=== PATIENT | female | born 1985 | race Caucasian/White ===

== ENCOUNTER 2017-05-04 23:22 | Emergency (ER) | payer BC, OTHER ==
[~2017-05-04] VITALS: Ht 170.2 cm; Wt 65.0 kg
[~2017-05-04 23:22] MED LIST: ALBU6.7H INH; PREN0.01 PO
[2017-05-04 23:25] VITALS: BP 113/84; PULSE 96; RESP 18; TEMP 99.5; O2SAT 98
[2017-05-04] MEDS ORDERED: ZOFR4TAB3 SL (23:41)
[2017-05-04] MEDS ORDERED: ALBU6.7H INH (23:41)
[2017-05-04] MEDS ORDERED: HYDR-3580 PO (23:41)
[2017-05-04] MEDS ORDERED: DIAZ5TAB PO (23:41)
[2017-05-04] MEDS ORDERED: CRANPOW2 (23:41)
[2017-05-04] MEDS ORDERED: multivitamin (23:41)
[2017-05-04 23:48] VITALS: BP 115/73; PULSE 93; O2SAT 99
[2017-05-05] MEDS ORDERED: SODIUM CHLOR 0.9% 1000 ML INJ 1,000 ML IV ONE ×2 (00:15)
--- NOTE | 2017-05-05 00:21 | PD ---
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 Yesterday she felt a little bit feverish but it went away this morning. Today it came and stayed so she came to the emergency department. She is also concerned because she has been constipated. She has not been having consistent bowel movement since her surgery. She used an enema and took prune juice and the third of magnesium citrate bottle and had 2 small stools. She doesn't feel bloated. She's been vomiting several times a day ever since the surgery due to vertigo which she's been told is normal. She denies any pain or redness around the site of her surgery. She has had some dysuria and some urinary urgency 3 days ago but she took some cranberry pills and that went away. She denies any cough, rhinorrhea or sore throat. PFSH Past Medical History Asthma: Yes (seasonal allery ) Tetanus Vaccination: > 5 Years Influenza Vaccination: Yes ?: Not : 2 Para: 2 Dilation and Curettage (D&C): Yes (4 years) Past Surgical History Other Surgery: Yes (brain sx 04/20/17 rem of acoustic neuroma) Social History Alcohol Use: No Tobacco Use: No Substance Use: No Allergies-Medications (Allergen,Severity, Reaction): Coded Allergies: Lactose (Verified Allergy, Severe, CRAMPING, DIARREHIA, 07/06/12) Reported Meds & Prescriptions Reported Meds & Active Scripts Active Reported Cranberry (Cranberry (Vaccinium Macrocarpon)) 1 Powd [multivitamin] Diazepam 5 Mg Tab 5 Mg PO QID PRN Hydrocodone-Acetaminophen 7.5-325 mg Tab 1 Tab PO Q6H PRN Zofran Odt (Ondansetron Odt) 4 Mg Tab 4 Mg SL Q8HR PRN Proventil Hfa 6.7 GM Inh (Albuterol Sulfate) 90 Mcg/Act Aer 2 Puff INH Q6H PRN Review of Systems Except as stated in HPI: all other systems reviewed are Neg Physical Exam Narrative GENERAL:Well appearing, no acute distress SKIN: Well healing incision behind the right ear with no erythema, fluctuance or drainage. HEAD: Atraumatic. Normocephalic. EYES: Pupils equal and round. No injection or drainage. ENT: Dry mucous membranes. NECK: Trachea midline. CARDIOVASCULAR: Regular rate and rhythm. No murmur appreciated. RESPIRATORY: Clear to auscultation. Breath sounds equal bilaterally. GASTROINTESTINAL: Abdomen soft, non-tender, nondistended. MUSCULOSKELETAL: No obvious deformities. NEUROLOGICAL: Awake and alert. No obvious cranial nerve deficits. Moving all extremities PSYCHIATRIC: Appropriate mood and affect; insight and judgment normal. Data Data Last Documented VS Vital Signs Date Time Temp Pulse Resp B/P Pulse Ox O2 Delivery O2 Flow Rate FiO2 05/04/17 23:49 99 Room Air 05/04/17 23:48 93 115/73 05/04/17 23:25 99.5 18 Orders Complete Blood Count With Diff (05/05/17 00:02) Comprehensive Metabolic Panel (05/05/17 00:02) ^ Insert Iv (05/05/17 00:02) Urinalysis - C+S If Indicated (05/05/17 00:02) Sodium Chlor 0.9% 1000 Ml Inj (Ns 1000 M (05/05/17 00:15) Ed Urine Pregnancytest Poc (05/05/17 00:02) Sodium Chlor 0.9% 1000 Ml Inj (Ns 1000 M (05/05/17 00:15) Chest, Single Ap (05/05/17 ) Labs Laboratory Tests Test 05/05/17 00:08 White Blood Count 15.4 TH/MM3 Red Blood Count 5.09 MIL/MM3 Hemoglobin 14.7 GM/DL Hematocrit 44.3 % Mean Corpuscular Volume 86.9 FL Mean Corpuscular Hemoglobin 28.9 PG Mean Corpuscular Hemoglobin 33.3 % Concent Red Cell Distribution Width 13.3 % Platelet Count 173 TH/MM3 Mean Platelet Volume 9.4 FL Neutrophils (%) (Auto) 71.0 % Lymphocytes (%) (Auto) 22.9 % Monocytes (%) (Auto) 5.1 % Eosinophils (%) (Auto) 0.8 % Basophils (%) (Auto) 0.2 % Neutrophils # (Auto) 10.9 TH/MM3 Lymphocytes # (Auto) 3.5 TH/MM3 Monocytes # (Auto) 0.8 TH/MM3 Eosinophils # (Auto) 0.1 TH/MM3 Basophils # (Auto) 0.0 TH/MM3 CBC Comment DIFF FINAL Differential Comment Urine Color LIGHT-YELLOW Urine Turbidity CLEAR Urine pH 6.5 Urine Specific [place] 1.005 Urine Protein NEG mg/dL Urine Glucose (UA) NEG mg/dL Urine Ketones NEG mg/dL Urine Occult Blood NEG Urine Nitrite NEG Urine Bilirubin NEG Urine Urobilinogen LESS THAN 2.0 MG/DL Urine Leukocyte Esterase NEG Urine WBC 1 /hpf Urine Squamous Epithelial 1 /hpf Cells Microscopic Urinalysis Comment CULT NOT INDICATED Sodium Level 137 MEQ/L Potassium Level 4.2 MEQ/L Chloride Level 98 MEQ/L Carbon Dioxide Level 33.6 MEQ/L Anion Gap 5 MEQ/L Blood Urea Nitrogen 9 MG/DL Creatinine 0.63 MG/DL Estimat Glomerular Filtration 110 ML/MIN Rate Random Glucose 119 MG/DL Calcium Level 8.7 MG/DL Total Bilirubin 0.4 MG/DL Aspartate Amino Transf 17 U/L (AST/SGOT) Alanine Aminotransferase 40 U/L (ALT/SGPT) Alkaline Phosphatase 65 U/L Total Protein 7.3 GM/DL Albumin 3.5 GM/DL [facility] Medical Decision Making Medical Screen Exam Complete: Yes Emergency Medical Condition: Yes Interpretation(s) temperature is 99.5, mild tachycardia, normotensive leukocytosis of 15 electrolytes are reassuring urinalysis: no infection cxr: no acute process Differential Diagnosis Urinary tract infection, pneumonia, viral syndrome, meningitis Narrative Course This is a 31-year-old female who presents to the emergency department with a fever of 101.4 earlier today. She has no localizing symptoms. She was concerned about her constipation and thought she might have a blockage in her abdomen. She appears dehydrated on exam. Labs are obtained which demonstrated a mild leukocytosis. She says she has had some neck pain but this is ever since the procedure and she has not developed any worsening headache, neck pain or photophobia in the past several days. I spoke to her neurosurgeon who said the only concern would be that the patient may have meningitis. At this point she doesn't appear to have bacterial meningitis. I discussed the possibilities with the patient of doing a lumbar puncture here in the emergency department or transferring her over to the [facility] ER. Her neurosurgeon Dr. Zuluaga offered to evaluate her in clinic in the morning. She would prefer to do this and she feels a lot better after IV hydration. She understood my concern for meningitis and she feels like this possibilities fairly unlikely based on her symptoms. I gave her strict instructions that if she had all feels worse over night she should return to the emergency department and she should probably follow up with her neurosurgeon in the morning. Diagnosis Primary Impression: Fever Qualified Code: R50.9 - Fever, unspecified fever cause Patient Instructions: General Instructions Additional Instructions: If you develop severe headache, neck pain, light sensitivity, confusion, or feel worse return to the emergency department immediately. Follow up with Dr. Zuluaga in the office first thing in the morning. Med/Other Pt SpecificInfo: No Change to Meds Disposition: 01 DISCHARGE HOME Condition: Stable Aicha Lazcano MD May 05, 2017 00:21
[2017-05-05 00:22] LABS: BLOOD, URINE NEG (NEG); GLUCOSE,URINE NEG (NEG); KETONE, URINE NEG (NEG); NITRITE,URINE NEG (NEG); PH, URINE 6.5 (5.0-8.5); SQUAMOUS EPITHELIAL CELL URINE 1 /hpf (0-5); URINE COLOR LIGHT-YELLOW (YELLW/STRAW)
[2017-05-05 00:26] LABS: AUTOMATED NEUTROPHIL # 10.9 TH/MM3 (1.8-7.7); BASOPHIL % 0.2 % (0.0-2.0); EOSINOPHIL # 0.1 TH/MM3 (0-0.4); EOSINOPHIL % 0.8 % (0.0-4.0); HEMATOCRIT 44.3 % (35.0-46.0); HEMO FLAGS DIFF FINAL; LYMPH % 22.9 % (9.0-44.0); LYMPHOCYTE # 3.5 TH/MM3 (1.0-4.8); MEAN CELL VOLUME 86.9 FL (80.0-100.0); MEAN CORPUSCULAR HEMOGLOBIN 28.9 PG (27.0-34.0); MEAN CORPUSCULAR HGB CONC 33.3 % (32.0-36.0); MONO % 5.1 % (0.0-8.0); PLATELET COUNT 173 TH/MM3 (150-450); RED BLOOD COUNT 5.09 MIL/MM3 (4.00-5.30); RED CELL DISTRIBUTION WIDTH 13.3 % (11.6-17.2); WHITE BLOOD COUNT 15.4 TH/MM3 (4.0-11.0)
[2017-05-05 00:32] LABS: COMMENT (UR) CULT NOT INDICATED; CULTURE IF INDICATED CULT NOT INDICATED
[2017-05-05 00:43] LABS: ALKALINE PHOSPHATASE 65 U/L (45-117); TOTAL BILIRUBIN ADULT 0.4 MG/DL (0.2-1.0)
[2017-05-05 00:47] LABS: ALT (GPT) 40 U/L (10-53); ANION GAP 5 MEQ/L (5-15); AST (GOT) 17 U/L (15-37); BICARBONATE 33.6 MEQ/L (21.0-32.0); BLOOD UREA NITROGEN 9 MG/DL (7-18); CHLORIDE 98 MEQ/L (98-107); GLOMERULAR FILTRATION RATE 110 ML/MIN (>89); POTASSIUM 4.2 MEQ/L (3.5-5.1); SODIUM (NA) 137 MEQ/L (136-145)
--- NOTE | 2017-05-05 01:34 | RADRPT ---
EXAM DATE/TIME: 05/05/2017 00:53 [place] COMPARISON: No previous studies available for comparison. INDICATIONS : Pt with fever and chills x 1 day. MEDICAL HISTORY : None. SURGICAL HISTORY : None. ENCOUNTER: Initial ACUITY: 1 day PAIN SCORE: 6/10 LOCATION: Bilateral chest FINDINGS: A single view of the chest demonstrates the lungs to be symmetrically aerated without evidence of mas s, infiltrate or effusion. The cardiomediastinal contours are unremarkable. Osseous structures are intact. CONCLUSION: 1. No acute cardiopulmonary disease. Joseph Sheriff MD on May 05, 2017 at 1:33 Board Certified Radiologist. This report was verified electronically.
== END 2017-05-05 02:12 | disposition home or self-care (01) ==
LOC: NEPE 23:22
DX: R50.9 Fever, unspecified (principal); K59.00 Constipation, unspecified
CPT/HCPCS: 71010; 80053; 81001; 84703; 85025; 96360; 96361; 99284; J7030